=== PATIENT | male | born 2000 | race Caucasian/White ===

== ENCOUNTER 2022-03-08 19:18 | Emergency (ER) | payer BC, OTHER ==
[2022-03-08] MEDS ORDERED: Diphtheria,Pertussis(Acell),Tetanus Vaccine 0.5 ML Syringe IM ONE (19:36)
[2022-03-08] MEDS ORDERED: Lidocaine 2% 10 ML Amp INJECT ONE (19:36)
[2022-03-08] MEDS ORDERED: Bacitracin Oint 1 GM U/D Packet TOP ONE (19:37)
[2022-03-08] MEDS ORDERED: HYDROmorphone 2 MG/ML SDV IM ONE (19:42)
[2022-03-08 22:05] VITALS: BP 136/95; PULSE 100
== END 2022-03-08 21:23 | disposition home or self-care (01) ==
LOC: FB.ED 19:18
DX: S61.211A Laceration without foreign body of left index finger without damage to nail, initial encounter (principal); Z23 Encounter for immunization; W26.8XXA Contact with other sharp object(s), not elsewhere classified, initial encounter
CPT/HCPCS: 12002; 90471; 90715; 96372; 99283; J1170